=== PATIENT | male | born 1980 | race American Indian/Alaskan Native ===

== ENCOUNTER 2018-09-26 10:30 | Observation (INO) | payer BC ==
[2018-09-26] MEDS ORDERED: D50W (25GM) Syringe IV PRN (10:57)
[2018-09-26] MEDS ORDERED: APRESOLINE IV PRN (10:58)
[2018-09-26] MEDS: HumaLOG SUB-Q SCH ×3 (12:00→21:49)
[2018-09-26 12:48] LABS: Basophils # (Auto) 0.1 K/mm3 (0.0-0.1); Eosinophils # (Auto) 0.2 K/mm3 (0.0-0.4); Eosinophils % (Auto) 4.1 % (0.0-4.3); Hematocrit 41.4 % (35.5-45.6); Hemoglobin 13.5 gm/dl (11.8-15.2); Lymphocytes # (Auto) 2.5 K/mm3 (1.2-5.4); Lymphocytes % (Auto) 43.9 % (13.4-35.0); Mean Corpuscular HGB Conc 33 % (32-34); Mean Corpuscular Volume 78 fl (84-94); Monocytes # (Auto) 0.4 K/mm3 (0.0-0.8); Monocytes % (Auto) 6.9 % (0.0-7.3); Platelet Count 197 K/mm3 (140-440); Red Cell Distribution Width 15.3 % (13.2-15.2)
[2018-09-26] MEDS ORDERED: TYLENOL PO PRN (13:34)
[2018-09-26] MEDS ORDERED: ZOFRAN IV PRN (13:34)
--- NOTE | 2018-09-26 13:50 | History and Physical Report ---
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 Quijano by his PCP for uncontrolled hypertension and proteinuria. Dr. Quijano saw patient yesterday in his office and increased his hydralazine and metoprolol. Patient returned to Dr. Quijano's today and bp was still too high; so Dr. Quijano requested a direct admission and was accepted by Dr. Cristobal under my name. I spoke with Dr. Quijano. Patient has no symptoms at this time. He does mention an abnormal cxr and renal function. Labs ordered. PMH: as hpi PSH: he denies SH: no tobacco, no etoh, no drugs, with 12 yo child FH: father has DM and hypertension ROS: Constitutional: denies: fever ENT: denies: throat or neck pain Respiratory: denies: cough, shortness of breath Cardiovascular: denies: chest pain Endocrine: denies unexplained weight loss or gain Gastrointestinal: denies: abdominal pain, nausea Genitourinary: denies: dysuria Rectal: denies no incontinence, no bleeding, no itching, no discharge Musculoskeletal: denies swelling, myaglia, muscle weakness Skin: denies rash Neurological: denies: headache Hematological/Lymphatic: denies: easy bleeding or easy bruising Allergic/Immunologic: no urticaria, no allergic rhinitis, no anaphylaxis Psych: denies sadness or hopelessness, SI/HI Medications and Allergies Allergies Allergy/AdvReac Type Severity Reaction Status Date / Time No Known Allergies Allergy Unverified 09/26/18 10:56 Active Meds: Active Medications Acetaminophen (Tylenol) 650 mg PO Q6H PRN PRN Reason: Non Cardiac Pain or Temp>100.5 Dextrose (D50w (25gm) Syringe) 50 ml IV PRN PRN PRN Reason: Hypoglycemia Heparin Sodium (Porcine) (Heparin) 5,000 unit SUB-Q Q12HR [facility] Hydralazine HCl (Apresoline) 10 mg IV Q4HR PRN PRN Reason: Blood Pressure Insulin Human Lispro (Humalog) 0 unit SUB-Q ACHS [facility]; Protocol Ondansetron HCl (Zofran) 4 mg IV Q4H PRN PRN Reason: Nausea And Vomiting Exam - Physical Exam Narrative exam: Gen: WDWN, NAD, Awake, Alert, Orientated x 3, morbid obese 47.5 HEENT: NCAT, EOMI, PERRL, OP Clear Neck: supple, no adenopathy, no thyromegaly, no JVD CVS/Heart: RRR, normal S1S2, pulses present bilaterally Chest/Lungs: CTA B, Symmetrical chest expansion, good air entry bilaterally GI/Abdomen: soft, NTND, good bowel sounds, no guarding or rebound /Bladder: no suprapubic tenderness, no CVA or paraspinal tenderness Extermity/Skin: ble non-pitting trace leg edema, no obvious rash MSK: FROM x 4 Neuro: CN 2-12 grossly intact, no new focal deficits Psych: calm Results - Labs CBC & Chem 7: 09/26/18 12:28 Labs: Abnormal lab results 09/26/18 Range/Units 12:28 RBC 5.30 H (3.65-5.03) M/mm3 MCV 78 L (84-94) fl MCH 25 L (28-32) pg RDW 15.3 H (13.2-15.2) % Lymph % (Auto) 43.9 H (13.4-35.0) % Assessment and Plan 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 Quijano by his PCP for uncontrolled hypertension and proteinuria. Dr. Quijano saw patient yesterday in his office and increased his hydralazine and metoprolol. Patient returned to Dr. Quijano's today and bp was still too high; so Dr. Quijano requested a direct admission and was accepted by Dr. Cristobal under my name. I spoke with Dr. Quijano. Patient has no symptoms at this time. He does mention an abnormal cxr and renal function. Labs ordered. -Malignant hypertension with urgency: low salt, iv hydralazine prn -Type 2 DM, a1c was 7.[address] Quijano: ssI, metformin but check renal function -Dyslipidemia: statin -H/o proteinuria: check UA, consulted nephrology -Morbid obesity, bmi 47.5: lifestyle modification discussed -DVT ppx; sq heparin full code Home rec not done
[2018-09-26 13:54] LABS: Alanine Aminotransferase 63 units/L (7-56); BUN/Creatinine Ratio 8; Blood Urea Nitrogen 11 mg/dL (9-20); Calcium 10.2 mg/dL (8.4-10.2); Hemolysis Index 5
--- NOTE | 2018-09-26 14:30 | XRay Report ---
AP CHEST: HISTORY: Hypertension, leg swelling AP view of the chest demonstrates a normal mediastinal and cardiac contour with clear lungs and normal bony and soft tissue structures. IMPRESSION: Unremarkable AP chest.
[2018-09-27 05:06] LABS: Hematocrit 40.5 % (35.5-45.6); Hemoglobin 13.1 gm/dl (11.8-15.2); Mean Corpuscular HGB Conc 32 % (32-34); Mean Corpuscular Volume 79 fl (84-94); Platelet Count 181 K/mm3 (140-440); Red Blood Count 5.14 M/mm3 (3.65-5.03); Red Cell Distribution Width 15.2 % (13.2-15.2)
[2018-09-27 05:13] LABS: Bilirubin,Urine NEG (Negative); Blood,Urine NEG (Negative); Color,Urine Yellow (Yellow)
[2018-09-27] MEDS ORDERED: GLIMEPIRIDE 2 MG PO SCH (10:00)
[2018-09-27] MEDS ORDERED: NON-FORMULARY (Clonidine 0.1 MG) PO SCH (10:00)
[2018-09-27] MEDS ORDERED: JARDIANCE 10 MG PO SCH (10:00)
[2018-09-27] MEDS ORDERED: NON-FORMULARY (Metoprolol Tartrate 50 MG) PO SCH (10:00)
[2018-09-27] MEDS ORDERED: CATAPRES PO SCH (10:00)
[2018-09-27] MEDS ORDERED: NON-FORMULARY (Metformin 500 MG) PO SCH (10:00)
[2018-09-27] MEDS: LOPRESSOR PO SCH ×2 (10:57→21:30)
[2018-09-27] MEDS: CLARITIN PO SCH (10:57)
[2018-09-27] MEDS: AMARYL PO SCH (10:58)
[2018-09-27] MEDS: GLUCOPHAGE PO SCH (10:58)
--- NOTE | 2018-09-27 11:17 | Consultation ---
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 Quijano by his PCP for uncontrolled hypertension and proteinuria. Dr. Quijano saw patient yesterday in his office and increased his hydralazine and metoprolol. Patient returned to Dr. Quijano's today and bp was still too high; so Dr. Quijano requested a direct admission and was accepted by Dr. Cristobal under my name. I spoke with Dr. Quijano. Patient has no symptoms at this time. He does mention an abnormal cxr and renal function. Labs ordered. PMH: as hpi PSH: he denies SH: no tobacco, no etoh, no drugs, with 12 yo child FH: father has DM and hypertension ROS: Constitutional: denies: fever ENT: denies: throat or neck pain Respiratory: denies: cough, shortness of breath Cardiovascular: denies: chest pain Endocrine: denies unexplained weight loss or gain Gastrointestinal: denies: abdominal pain, nausea Genitourinary: denies: dysuria Rectal: denies no incontinence, no bleeding, no itching, no discharge Musculoskeletal: denies swelling, myaglia, muscle weakness Skin: denies rash Neurological: denies: headache Hematological/Lymphatic: denies: easy bleeding or easy bruising Allergic/Immunologic: no urticaria, no allergic rhinitis, no anaphylaxis Psych: denies sadness or hopelessness, SI/HI Medications and Allergies Allergies Allergy/AdvReac Type Severity Reaction Status Date / Time No Known Allergies Allergy Unverified 09/26/18 10:56 Home Medications Medication Instructions Recorded Confirmed Last Taken Type Clonidine 0.1 mg PO BID 09/26/18 09/26/18 Unknown History Glimepiride 2 mg PO DAILY 09/26/18 09/26/18 Unknown History Hydralazine HCl 25 mg PO TID 09/26/18 09/26/18 Unknown History Jardiance 10 mg PO DAILY 09/26/18 09/26/18 Unknown History Metoprolol Tartrate 25 mg PO BID 09/26/18 09/26/18 Unknown History Simvastatin 20 mg PO HS 09/26/18 09/26/18 Unknown History Telmisartan/Hydrochlorothiazid 25 - 80 mg PO DAILY 09/26/18 09/26/18 Unknown Hi story metFORMIN 500 mg PO DAILY 09/26/18 09/26/18 Unknown History Active Meds: Active Medications Acetaminophen (Tylenol) 650 mg PO Q6H PRN PRN Reason: Non Cardiac Pain or Temp>100.5 Last Admin: 09/27/18 02:10 Dose: 650 mg Documented by: Amlodipine Besylate (Norvasc) 10 mg PO QDAY [facility] Clonidine HCl (Catapres) 0.2 mg PO TID [facility] Dextrose (D50w (25gm) Syringe) 50 ml IV PRN PRN PRN Reason: Hypoglycemia Glimepiride (Amaryl) 2 mg PO QDDIAB [facility] Last Admin: 09/27/18 10:58 Dose: 2 mg Documented by: Heparin Sodium (Porcine) (Heparin) 5,000 unit SUB-Q Q12HR [facility] Hydralazine HCl (Apresoline) 10 mg IV Q4HR PRN PRN Reason: Blood Pressure Last Admin: 09/26/18 17:50 Dose: 10 mg Documented by: Hydralazine HCl (Apresoline) 100 mg PO TID [facility] Insulin Human Lispro (Humalog) 0 unit SUB-Q [facility]; Protocol Last Admin: 09/26/18 21:49 Dose: Not Given Documented by: Loratadine (Claritin) 10 mg PO QDAY [facility] Last Admin: 09/27/18 10:57 Dose: 10 mg Documented by: Metformin HCl (Glucophage) 500 mg PO QDDIAB [facility] Last Admin: 09/27/18 10:58 Dose: 500 mg Documented by: Metoprolol Tartrate (Lopressor) 50 mg PO BID [facility] Last Admin: 09/27/18 10:57 Dose: 50 mg Documented by: Miscellaneous Medication (Jardiance) 10 mg PO DAILY [facility] Ondansetron HCl (Zofran) 4 mg IV Q4H PRN PRN Reason: Nausea And Vomiting Pravastatin Sodium (Pravachol) 40 mg PO QHS [facility] Exam - Vital Signs Vital signs: Vital Signs Pulse BP Pulse Ox 74 174/116 94 09/26/18 11:54 09/26/18 11:54 09/26/18 11:54 - Physical Exam Narrative exam: Narrative exam: Gen: WDWN, NAD, Awake, Alert, Orientated x 3, morbid obese 47.5 HEENT: NCAT, EOMI, PERRL, OP Clear Neck: supple, no adenopathy, no thyromegaly, no JVD CVS/Heart: RRR, normal S1S2, pulses present bilaterally Chest/Lungs: CTA B, Symmetrical chest expansion, good air entry bilaterally GI/Abdomen: soft, NTND, good bowel sounds, no guarding or rebound /Bladder: no suprapubic tenderness, no CVA or paraspinal tenderness Extermity/Skin: ble non-pitting trace leg edema, no obvious rash MSK: FROM x 4 Neuro: CN 2-12 grossly intact, no new focal deficits Psych: calm Results - Lab Results 09/27/18 04:14 09/26/18 12:28 Most recent lab results Calcium 10.2 mg/dL (8.4-10.2) 09/26/18 12:28 Assessment and Plan Impression: * Accelerated Hypertension * CKD stage 3 * type 2 dm * hyperlipidemia Plan: * add amlodipine and increase clonidine * cr is stable * home once bp stable
[2018-09-27] MEDS: HumaLOG SUB-Q SCH ×4 (11:20→21:33)
[2018-09-27] MEDS: NORVASC PO SCH (13:12)
[2018-09-27] MEDS: CATAPRES PO SCH ×2 (13:12→21:34)
[2018-09-27] MEDS: APRESOLINE PO SCH ×2 (13:12→21:30)
[2018-09-27] MEDS: HEPARIN SUB-Q SCH ×2 (13:13→21:32)
--- NOTE | 2018-09-27 13:50 | Progress Note ---
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 Quijano by his PCP for uncontrolled hypertension and proteinuria. Dr. Quijano saw patient yesterday in his office and increased his hydralazine and metoprolol. Patient returned to Dr. Quijano's today and bp was still too high; so Dr. Quijano requested a direct admission and was accepted by Dr. Cristobal under my name. I spoke with Dr. Quijano. Patient has no symptoms at this time. He does mention an abnormal cxr and renal function. Labs ordered. -Malignant hypertension with urgency: low salt, iv hydralazine prn -Type 2 DM, a1c was 7.[address] Quijano: ssI, metformin but check renal function -Dyslipidemia: statin -H/o proteinuria: check UA, consulted nephrology -Morbid obesity, bmi 47.5: lifestyle modification discussed -DVT ppx; sq heparin full code Home reconcilation done but Telmisartan/hctz not available here, will ask pharmacy to substitute the Micardis History Interval history: Patient was seen and examined. Follow-up on current diagnosis of Hypertension. Overnight uneventful. Patient denies any chest pain, shortness breath, nausea/vomiting or severe headaches. Imaging, nursing note, chart, labs and old chart reviewed. Discussed with patient. Hospitalist Physical - Physical exam Narrative exam: Gen: WDWN, NAD, Awake, Alert, Orientated x 3, morbid obese 47.5 HEENT: NCAT, EOMI, PERRL, OP Clear Neck: supple, no adenopathy, no thyromegaly, no JVD CVS/Heart: RRR, normal S1S2, pulses present bilaterally Chest/Lungs: CTA B, Symmetrical chest expansion, good air entry bilaterally GI/Abdomen: soft, NTND, good bowel sounds, no guarding or rebound /Bladder: no suprapubic tenderness, no CVA or paraspinal tenderness Extermity/Skin: ble non-pitting trace leg edema, no obvious rash MSK: FROM x 4 Neuro: CN 2-12 grossly intact, no new focal deficits Psych: calm - Constitutional Vitals: Temp Pulse Resp BP Pulse Ox 97.5 F L 67 18 175/111 94 09/27/18 07:30 09/27/18 11:00 09/27/18 07:30 09/27/18 13:12 09/27/18 07:30 Results - Labs CBC & Chem 7: 09/27/18 04:14 09/26/18 12:28 Labs: Laboratory Last Values WBC 5.9 K/mm3 (4.5-11.0) 09/27/18 04:14 RBC 5.14 M/mm3 (3.65-5.03) H 09/27/18 04:14 Hgb 13.1 gm/dl (11.8-15.2) 09/27/18 04:14 Hct 40.5 % (35.5-45.6) 09/27/18 04:14 MCV 79 fl (84-94) L 09/27/18 04:14 MCH 26 pg (28-32) L 09/27/18 04:14 MCHC 32 % (32-34) 09/27/18 04:14 RDW 15.2 % (13.2-15.2) 09/27/18 04:14 Plt Count 181 K/mm3 (140-440) 09/27/18 04:14 Lymph % (Auto) 43.9 % (13.4-35.0) H 09/26/18 12:28 [place] % (Auto) 6.9 % (0.0-7.3) 09/26/18 12:28 Eos % (Auto) 4.1 % (0.0-4.3) 09/26/18 12:28 Baso % (Auto) 1.0 % (0.0-1.8) 09/26/18 12:28 Lymph # 2.5 K/mm3 (1.2-5.4) 09/26/18 12:28 [place] # 0.4 K/mm3 (0.0-0.8) 09/26/18 12:28 Eos # 0.2 K/mm3 (0.0-0.4) 09/26/18 12:28 Baso # 0.1 K/mm3 (0.0-0.1) 09/26/18 12:28 Seg Neutrophils % 44.1 % (40.0-70.0) 09/26/18 12:28 Seg Neutrophils # 2.5 K/mm3 (1.8-7.7) 09/26/18 12:28 Sodium 141 mmol/L (137-145) 09/26/18 12:28 Potassium 4.3 mmol/L (3.6-5.0) 09/26/18 12:28 Chloride 104.3 mmol/L (98-107) 09/26/18 12:28 Carbon Dioxide 21 mmol/L (22-30) L 09/26/18 12:28 Anion Gap 20 mmol/L 09/26/18 12:28 BUN 11 mg/dL (9-20) 09/26/18 12:28 Creatinine 1.3 mg/dL (0.8-1.5) 09/26/18 12:28 Estimated GFR > 60 ml/min 09/26/18 12:28 BUN/Creatinine Ratio 8 % 09/26/18 12:28 Glucose 118 mg/dL (75-100) H 09/26/18 12:28 POC Glucose 114 (70-105) H 09/27/18 12:14 Calcium 10.2 mg/dL (8.4-10.2) 09/26/18 12:28 Total Bilirubin 1.10 mg/dL (0.1-1.2) 09/26/18 12:28 AST 37 units/L (5-40) 09/26/18 12:28 ALT 63 units/L (7-56) H 09/26/18 12:28 Alkaline Phosphatase 124 units/L (35-129) 09/26/18 12:28 Troponin T < 0.010 ng/mL (0.00-0.029) 09/27/18 00:09 Total Protein 8.2 g/dL (6.3-8.2) 09/26/18 12:28 Albumin 4.0 g/dL (3.9-5) 09/26/18 12:28 Albumin/Globulin Ratio 1.0 % 09/26/18 12:28 TSH 0.913 mlU/mL (0.270-4.200) 09/26/18 12:28 Urine Color Yellow (Yellow) 09/26/18 Unknown Urine Turbidity Clear (Clear) 09/26/18 Unknown Urine pH 6.0 (5.0-7.0) 09/26/18 Unknown Ur Specific [place] 1.028 (1.003-1.030) 09/26/18 Unknown Urine Protein 30 mg/dl mg/dL (Negative) 09/26/18 Unknown Urine Glucose (UA) >=500 mg/dL (Negative) 09/26/18 Unknown Urine Ketones Neg mg/dL (Negative) 09/26/18 Unknown Urine Blood Neg (Negative) 09/26/18 Unknown Urine Nitrite Neg (Negative) 09/26/18 Unknown Urine Bilirubin Neg (Negative) 09/26/18 Unknown Urine Urobilinogen 2.0 mg/dL (<2.0) 09/26/18 Unknown Ur Leukocyte Esterase Neg (Negative) 09/26/18 Unknown Urine WBC (Auto) 1.0 /HPF (0.0-6.0) 09/26/18 Unknown Urine RBC (Auto) 1.0 /HPF (0.0-6.0) 09/26/18 Unknown U Epithel Cells (Auto) < 1.0 /HPF (0-13.0) 09/26/18 Unknown Active Medications - Current Medications Current Medications: Generic Name Dose Route Start Last Admin Trade Name Freq PRN Reason Stop Dose Admin Acetaminophen 650 mg 09/26/18 13:34 09/27/18 02:10 Tylenol PO 650 mg Q6H PRN Administration Non Cardiac Pain or Temp>100.5 Amlodipine Besylate 10 mg 09/27/18 14:00 09/27/18 13:12 Norvasc PO 10 mg QDAY [facility] Administration Clonidine HCl 0.2 mg 09/27/18 14:00 09/27/18 13:12 Catapres PO 0.2 mg TID [facility] Administration Dextrose 50 ml 09/26/18 10:57 D50w (25gm) Syringe IV PRN PRN Hypoglycemia Glimepiride 2 mg 09/27/18 11:00 09/27/18 10:58 Amaryl PO 2 mg QDDIAB [facility] Administration Heparin Sodium (Porcine) 5,000 unit 09/27/18 13:34 09/27/18 13:13 Heparin SUB-Q 5,000 unit Q12HR [facility] Administration Hydralazine HCl 10 mg 09/26/18 10:58 09/26/18 17:50 Apresoline IV 10 mg Q4HR PRN Administration Blood Pressure Hydralazine HCl 100 mg 09/27/18 14:00 09/27/18 13:12 Apresoline PO 100 mg TID [facility] Administration Insulin Human Lispro 0 unit 09/26/18 11:30 09/27/18 13:13 Humalog SUB-Q Not Given ACHS [facility] Protocol Loratadine 10 mg 09/27/18 10:00 09/27/18 10:57 Claritin PO 10 mg QDAY [facility] Administration Metformin HCl 500 mg 09/27/18 11:00 09/27/18 10:58 Glucophage PO 500 mg QDDIAB [facility] Administration Metoprolol Tartrate 50 mg 09/27/18 10:00 09/27/18 10:57 Lopressor PO 50 mg BID [facility] Administration Miscellaneous Medication 10 mg 09/27/18 10:00 Jardiance PO DAILY [facility] Ondansetron HCl 4 mg 09/26/18 13:34 Zofran IV Q4H PRN Nausea And Vomiting Pravastatin Sodium 40 mg 09/27/18 22:00 Pravachol PO QHS [facility]
[2018-09-27] MEDS ORDERED: HYDROCHLOROTHIAZID PO SCH (14:00)
[2018-09-27] MEDS ORDERED: HYDRALAZINE HCL 100 MG PO SCH (14:00)
[2018-09-27] MEDS ORDERED: TELMISARTAN PO SCH (14:00)
[2018-09-27] MEDS: HCTZ PO SCH (18:17)
[2018-09-27] MEDS: COZAAR PO SCH (18:17)
[2018-09-27] MEDS ORDERED: PRAVACHOL PO SCH (22:00)
[2018-09-27] MEDS ORDERED: NON-FORMULARY (Simvastatin 20 MG) PO SCH (22:00)
[2018-09-28] MEDS: HumaLOG SUB-Q SCH ×2 (07:30→12:15)
[2018-09-28 07:40] LABS: Hematocrit 39.6 % (35.5-45.6); Hemoglobin 12.8 gm/dl (11.8-15.2); Mean Corpuscular HGB Conc 32 % (32-34); Mean Corpuscular Volume 79 fl (84-94); Platelet Count 166 K/mm3 (140-440); Red Blood Count 5.02 M/mm3 (3.65-5.03); Red Cell Distribution Width 15.3 % (13.2-15.2)
[2018-09-28 08:03] LABS: BUN/Creatinine Ratio 12; Blood Urea Nitrogen 14 mg/dL (9-20); Calcium 9.4 mg/dL (8.4-10.2); Hemolysis Index 7
[2018-09-28] MEDS: GLUCOPHAGE PO SCH (08:38)
[2018-09-28] MEDS: APRESOLINE PO SCH ×2 (08:38→13:38)
[2018-09-28] MEDS: CATAPRES PO SCH ×2 (08:38→13:26)
[2018-09-28] MEDS: AMARYL PO SCH (08:38)
[2018-09-28] MEDS: NORVASC PO SCH (10:09)
[2018-09-28] MEDS: HEPARIN SUB-Q SCH (10:09)
[2018-09-28] MEDS: CLARITIN PO SCH (10:09)
[2018-09-28] MEDS: HCTZ PO SCH (10:09)
[2018-09-28] MEDS: LOPRESSOR PO SCH (10:09)
[2018-09-28] MEDS: COZAAR PO SCH (10:09)
--- NOTE | 2018-09-28 10:52 | Progress Note ---
Assessment and Plan Impression: * Accelerated Hypertension * CKD stage 3 * type 2 dm * hyperlipidemia Plan: * add amlodipine and increase clonidine * cr is stable * home once bp stable * ok to dc home today Subjective Date of service: 09/28/18 Principal diagnosis: htn Interval history: resting in bed Objective - Exam Narrative Exam: Narrative exam: Gen: WDWN, NAD, Awake, Alert, Orientated x 3, morbid obese 47.5 HEENT: NCAT, EOMI, PERRL, OP Clear Neck: supple, no adenopathy, no thyromegaly, no JVD CVS/Heart: RRR, normal S1S2, pulses present bilaterally Chest/Lungs: CTA B, Symmetrical chest expansion, good air entry bilaterally GI/Abdomen: soft, NTND, good bowel sounds, no guarding or rebound /Bladder: no suprapubic tenderness, no CVA or paraspinal tenderness Extermity/Skin: ble non-pitting trace leg edema, no obvious rash MSK: FROM x 4 Neuro: CN 2-12 grossly intact, no new focal deficits Psych: calm - Vital Signs Vital signs: Vital Signs - 12hr 09/27/18 09/27/18 09/28/18 23:00 23:01 01:58 Temperature 98.2 F Pulse Rate 71 71 Pulse Rate [ From Monitor] Respiratory 18 Rate Blood Pressure 119/77 O2 Sat by Pulse 99 97 Oximetry 09/28/18 09/28/18 09/28/18 04:13 08:23 08:24 Temperature 97.3 F L 98.1 F Pulse Rate 70 80 Pulse Rate [ From Monitor] Respiratory 20 20 Rate Blood Pressure 119/79 140/88 O2 Sat by Pulse 97 97 Oximetry 09/28/18 10:21 Temperature Pulse Rate Pulse Rate [ 80 From Monitor] Respiratory 20 Rate Blood Pressure O2 Sat by Pulse 97 Oximetry - Lab 09/28/18 07:06 09/28/18 07:06 Most recent lab results Calcium 9.4 mg/dL (8.4-10.2) 09/28/18 07:06 Medications & Allergies - Medications Allergies/Adverse Reactions: Allergies No Known Allergies Allergy (Unverified 09/26/18 10:56) Home Medications: Home Medications Medication Instructions Recorded Confirmed Last Taken Type Clonidine 0.1 mg PO BID 09/26/18 09/26/18 Unknown History Glimepiride 2 mg PO DAILY 09/26/18 09/26/18 Unknown History Hydralazine HCl 25 mg PO TID 09/26/18 09/26/18 Unknown History Jardiance 10 mg PO DAILY 09/26/18 09/26/18 Unknown History Metoprolol Tartrate 25 mg PO BID 09/26/18 09/26/18 Unknown History Simvastatin 20 mg PO HS 09/26/18 09/26/18 Unknown History Telmisartan/Hydrochlorothiazid 25 - 80 mg PO DAILY 09/26/18 09/26/18 Unknown History metFORMIN 500 mg PO DAILY 09/26/18 09/26/18 Unknown History Active Medications: Generic Name Dose Route Start Last Admin Trade Name Freq PRN Reason Stop Dose Admin Acetaminophen 650 mg 09/26/18 13:34 09/27/18 02:10 Tylenol PO 650 mg Q6H PRN Administration Non Cardiac Pain or Temp>100.5 Amlodipine Besylate 10 mg 09/27/18 14:00 09/28/18 10:09 Norvasc PO 10 mg QDAY [facility] Administration Clonidine HCl 0.2 mg 09/27/18 14:00 09/28/18 08:38 Catapres PO Not Given TID [facility] Dextrose 50 ml 09/26/18 10:57 D50w (25gm) Syringe IV PRN PRN Hypoglycemia Glimepiride 2 mg 09/27/18 11:00 09/28/18 08:38 Amaryl PO 2 mg QDDIAB [facility] Administration Heparin Sodium (Porcine) 5,000 unit 09/27/18 13:34 09/28/18 10:09 Heparin SUB-Q 5,000 unit Q12HR [facility] Administration Hydralazine HCl 10 mg 09/26/18 10:58 09/26/18 17:50 Apresoline IV 10 mg Q4HR PRN Administration Blood Pressure Hydralazine HCl 100 mg 09/27/18 14:00 09/28/18 08:38 Apresoline PO 100 mg TID [facility] Administration Hydrochlorothiazide 25 mg 09/27/18 17:00 09/28/18 10:09 Hctz PO 25 mg QDAY [facility] Administration Insulin Human Lispro 0 unit 09/26/18 11:30 09/28/18 07:30 Humalog SUB-Q Not Given [facility] Protocol Loratadine 10 mg 09/27/18 10:00 09/28/18 10:09 Claritin PO 10 mg QDAY [facility] Administration Losartan Potassium 100 mg 09/27/18 17:00 09/28/18 10:09 Cozaar PO 100 mg QDAY [facility] Administration Metformin HCl 500 mg 09/27/18 11:00 09/28/18 08:38 Glucophage PO 500 mg QDDIAB [facility] Administration Metoprolol Tartrate 50 mg 09/27/18 10:00 09/28/18 10:09 Lopressor PO 50 mg BID [facility] Administration Miscellaneous Medication 10 mg 09/27/18 10:00 Jardiance PO DAILY [facility] Ondansetron HCl 4 mg 09/26/18 13:34 Zofran IV Q4H PRN Nausea And Vomiting Pravastatin Sodium 40 mg 09/27/18 22:00 09/27/18 21:31 Pravachol PO 40 mg QHS [facility] Administration
--- NOTE | 2018-09-28 12:46 | Discharge Summary ---
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 Quijano by his PCP Dr.Tomp rehman for uncontrolled hypertension and proteinuria. Dr. Quijano saw patient yesterday in his office and increased his hydralazine and metoprolol. Patient returned to Dr. Quijano's today and bp was still too high; so Dr. Quijano requested a direct admission and was accepted by Dr. Cristobal under my name. I spoke with Dr. Quijano. Patient has no symptoms at this time. He does mention an abnormal cxr and renal function. Labs ordered. -Malignant hypertension with urgency resolved, Norvasc and clonidine increased -Type 2 DM, a1c was 7.[address] Quijano: ssI, metformin but check renal function -Dyslipidemia: statin -H/o proteinuria: check UA, consulted nephrology -Morbid obesity, bmi 47.5: lifestyle modification discussed -DVT ppx; sq heparin full code Home reconcilation done Disposition: TO HOME OR SELFCARE Time spent for discharge: 34 minutes Core Measure Documentation - Palliative Care Palliative Care/ Comfort Measures: Not Applicable - Core Measures Any of the following diagnoses?: none - VTE Discharge Requirements Deep Vein Thrombosis/Pulmonary Embolism Present on Admission: No Has pt received <5 days of overlap therapy or INR<2.0: No Anticoagulant overlap therapy prescribed at discharge: No Contraindication No Overlap Therapy order at DC: Not Indicated Exam - Physical Exam Narrative exam: Gen: WDWN, NAD, Awake, Alert, Orientated x 3, morbid obese 47.5 HEENT: NCAT, EOMI, PERRL, OP Clear Neck: supple, no adenopathy, no thyromegaly, no JVD CVS/Heart: RRR, normal S1S2, pulses present bilaterally Chest/Lungs: CTA B, Symmetrical chest expansion, good air entry bilaterally GI/Abdomen: soft, NTND, good bowel sounds, no guarding or rebound /Bladder: no suprapubic tenderness, no CVA or paraspinal tenderness Extermity/Skin: ble non-pitting trace leg edema, no obvious rash MSK: FROM x 4 Neuro: CN 2-12 grossly intact, no new focal deficits Psych: calm - Constitutional Vitals: Temp Pulse Resp BP Pulse Ox 98.1 F 80 20 140/88 97 09/28/18 08:24 09/28/18 10:21 09/28/18 10:21 09/28/18 08:23 09/28/18 10:21 Plan Activity: other (no strenous activity unless cleared by Dr. Quijano) Diet: low salt Special Instructions: record daily BP diary Follow up with: LEOLA QUIJANO MD [Primary Care Provider] - 7 Days Prescriptions: hydrALAZINE [Apresoline TAB] 100 mg PO TID #90 tab cloNIDine [Catapres] 0.2 mg PO TID #90 tablet Metoprolol [Lopressor TAB] 50 mg PO BID #60 tablet amLODIPine [Norvasc] 10 mg PO QDAY #30 tablet
[2018-09-28 13:00] VITALS: BP 136/86
== END 2018-09-28 14:27 | disposition home or self-care (01) ==
LOC: UNDOADMIN 10:30 → 3A 10:30 → INTOOBSV 11:22 → 4A 11:22
PROVIDERS: ADMIT Internal Medicine; ATTEND Internal Medicine
DX: I16.0 Hypertensive urgency (principal); I10 Essential (primary) hypertension; E11.9 Type 2 diabetes mellitus without complications; E78.5 Hyperlipidemia, unspecified; E66.01 Morbid (severe) obesity due to excess calories; Z68.42 Body mass index [BMI] 45.0-49.9, adult
CPT/HCPCS: 36415; 71045; 80048; 80053; 81001; 82962; 84443; 84484; 85025; 85027; 96372; 96374; A9270; G0378; G0379; J0360; J1644